=== PATIENT | male | born 1950 ===

== ENCOUNTER 2024-10-12 22:38 | Emergency (ER) | payer OTHER, SELFPAY ==
[2024-10-12 22:47] VITALS: BP 140/98; PULSE 107; O2SAT 98
[2024-10-12 22:49] VITALS: BP 147/82; PULSE 106; RESP 18; TEMP 36.6; O2SAT 100; BMI 24.5
[2024-10-12 23:13] LABS: Hematocrit 39.8 % (42.0-52.0); Hemoglobin 12.6 g/dl (14.0-18.0); Mean Corpuscular HGB Conc 31.7 g/dl (31.0-36.0); Mean Corpuscular Hemoglobin 27.2 pg (27.0-33.0); Mean Platelet Volume 10.9 fL (9.4-12.4); Platelet Count 321 X10*3/uL (160-400); Red Blood Count 4.63 X10*6/uL (4.60-5.80); Red Cell Distribution Width 14.6 % (11.0-16.0); White Blood Count 7.6 X10*3/uL (4.8-10.8)
[2024-10-12 23:14] LABS: Appearance Urine Clear; Color Urine Yellow; Glucose Urine UA Negative (Negative); Leukocyte Esterase Urine Trace (Negative); Nitrite Urine Negative (Negative); Specific Gravity - Urine <= 1.005 (1.005-1.025); UMIC TRIGGER UACC YES; Urine Blood Negative (Negative); Urine Ketones Negative (Negative); Urine Protein Negative (Neg-Trace)
[2024-10-12 23:17] LABS: Bacteria Urine None Seen (None Seen); Hyaline Casts Urine 0-2 /LPF (0-2); RBC Urine 0-2 /HPF (0-2); Squamous Epithelial Cell Urine 0-2 /HPF (0-2); WBC Urine 0-5 /HPF (0-5)
[2024-10-12 23:24] LABS: Amphetamine Screen Urine Not Detected (Not Detect); Barbiturates, Urine Not Detected (Not Detect); Benzodiazepines Screen Urine Not Detected (Not Detect); Buprenorphine Scr Not Detected (Not Detect); Cannabinoid Screen Urine Not Detected (Not Detect); Cocaine Screen Urine Not Detected (Not Detect); Fentanyl, urine Not Detected (Not Detect); Methadone Screen, Urine Not Detected (Not Detect); Opiate Screen Urine Not Detected (Not Detect); Oxycodone Screen Urine Not Detected (Not Detect); Phencyclidine Screen Urine Not Detected (Not Detect)
[2024-10-12 23:27] LABS: Alanine Aminotransferase 44 U/L (0-40); Albumin Level 4.1 g/dL (3.5-5.0); Alkaline Phosphatase 126 U/L (39-117); Anion Gap 17 (12-20); Aspartate Amino Transferase 52 U/L (5-37); Bilirubin Total 0.2 mg/dL (0.0-1.0); Blood Urea Nitrogen 11 mg/dL (9-16); Calcium 9.3 mg/dL (8.4-10.2); Carbon Dioxide 18 mmol/L (22-29); Chloride 113 mmol/L (96-108); Estimated Glomerular Filt Rate > 60; Ethanol 73 mg/dL; Glucose Random 114 mg/dL (60-115); Potassium 3.9 mmol/L (3.3-5.1); Sodium 144 mmol/L (135-145)
--- NOTE | 2024-10-12 23:27 | ED_ITS ---
HPI - General Adult General Chief complaint: General Medical Stated complaint: etoh dementia confused Time Seen by Provider: 10/12/24 23:11 History of Present Illness ED Provider: rFancisco Smith MD HPI narrative: Brought in by EMS [facility] has notified us that the patient was discharged from there on the to a facility we are trying to get additional records. Medical history reviewed from recent discharge note from [facility] shows discharge diagnosis: Syncope, fall, hypernatremia, alcohol and tox, finger fracture, metabolic acidosis, right-sided rib fracture, cirrhosis, toxic encephalopathy. Discharge medications albuterol, aspirin, iron, folic acid, multivitamin, olanzapine, Crestor, thiamine Related Data Allergies Allergy/AdvReac Type Severity Reaction Status Date / Time No Known Allergies Allergy Verified 10/12/24 22:49 [No Known Allergies*] [facility] Social History Social History Advance Directives: No Advance Directives Information Provided: No Physical Exam ED Vital Signs: Vital Signs - 24 hr 10/12/24 22:49 10/13/24 02:41 10/13/24 05:42 Temperature 97.9 F 97.5 F 97.5 F Pulse Rate 106 H 73 60 Respiratory Rate 18 18 14 Blood Pressure 147/82 H 102/58 L 94/51 L Pulse Oximetry 100 97 96 Oxygen Delivery Method Room Air Room Air Room Air 10/13/24 12:59 Temperature 98.0 F Pulse Rate 76 Respiratory Rate 16 Blood Pressure 118/60 Pulse Oximetry 96 Oxygen Delivery Method Room Air BMI result Body Mass Index 24.5 Const Other: EXAM: Gen: Alert, awake, mildly intoxicated with slurred speech. No obvious external signs of injury. Demented pleasantly Head: Atraumatic Eyes: Anicteric, Normal conjunctiva. ENT: Moist mucosa, no pallor. ? Neck: Supple. Respiratory: Breathing comfortably, No distress.Clear to auscultation bilaterally, symmetric chest expansion, No wheeze, rales, ronchi. Cardiovascular: Regular rate and rhythm. No murmurs or rub. Well perfused periphery, warm extremities. No edema. ? Abdominal: Soft, no objective distension. No palpable masses or obvious organomegaly. No focal tenderness, no guarding, no rebound tenderness or other peritoneal findings. : No flank tenderness. Neuro: Alert. Gross movement of all extremities intact. ?Pleasantly demented no focal deficits Vital signs: See flowsheet Course Course Course Narrative: 10/13/2024 10:10 am Rebekah Baird PA-C -----> Observation continues. Case management continues to follow for disposition. 10/13/2024 1530 Rebekah Baird PA-C ----> Patient will be discharged home with his sister rather than returning to [facility] [place]. Observation care revealed the the patient does not meet medical necessity for hospitalization. Final disposition discussed with the patient and the patient's sister who verbalized understanding and agreement. Patient completed observation care at 1530, total time spent in observation care was 12 hours and 10 minutes. Medical Decision Making Medical Decision Making [facility] Narrative: Thanks to our charge nurse who called over to the facility [facility] we found that the patient left but was not discharge. For this reason he will be sent back. Patient's labwork physical examination reveal only perhaps mild intoxication in the setting of probably chronic mild dementia. There is no signs of injury metabolic derangement or other acute actionable findings on the workup and examination __ After discussion with my charge nurse as well as multiple calls she made to the facility the patient absconded from we felt that this most safe disposition is an overnight board with case management involvement and nursing custodian supervisor involvement tomorrow morning for the safest and best disposition. No acute medical issues we will monitor the patient overnight signed out to overnight physician Admission/Observation Consideration of admission/observation: Escalation of care including admission/observation considered Lab Data [facility] Lab Attestation statement: I reviewed the patient's lab results. 10/12/24 23:05 10/12/24 23:05 Labs: Lab Results 10/12/24 Range/Units 23:05 WBC 7.6 (4.8-10.8) X10*3/uL RBC 4.63 (4.60-5.80) X10*6/uL Hgb 12.6 L (14.0-18.0) g/dl Hct 39.8 L (42.0-52.0) % MCV 86.0 (80.0-98.0) fL MCH 27.2 (27.0-33.0) pg MCHC 31.7 (31.0-36.0) g/dl RDW 14.6 (11.0-16.0) % Plt Count 321 (160-400) X10*3/uL MPV 10.9 (9.4-12.4) fL Absolute Nucleated RBC 0.000 (0.0-0.012) X10*3/uL Nucleated RBC % (auto) 0.0 (0.0-0.2) /100WBC Sodium 144 (135-145) mmol/L Potassium 3.9 (3.3-5.1) mmol/L Chloride 113 H (96-108) mmol/L Carbon Dioxide 18 L (22-29) mmol/L Anion Gap 17 (12-20) BUN 11 (9-16) mg/dL Creatinine 0.88 (0.5-1.4) mg/dL Estim Creat Clear Calc 66.0 Estimated GFR > 60 Random Glucose 114 (60-115) mg/dL Calcium 9.3 (8.4-10.2) mg/dL Total Bilirubin 0.2 (0.0-1.0) mg/dL AST 52 H (5-37) U/L ALT 44 H (0-40) U/L Alkaline Phosphatase 126 H (39-117) U/L Total Protein 8.0 (6.5-8.0) g/dL Albumin 4.1 (3.5-5.0) g/dL Urine Color Yellow Urine Appearance Clear Urine pH 6.0 (5.0-9.0) Ur Specific Thelma <= 1.005 (1.005-1.025) Urine Protein Negative (Neg-Trace) mg/dL Urine Glucose (UA) Negative (Negative) mg/dL Urine Ketones Negative (Negative) mg/dL Urine Blood Negative (Negative) Urine Nitrite Negative (Negative) Ur Leukocyte Esterase Trace H (Negative) Urine RBC 0-2 (0-2) /HPF Urine WBC 0-5 (0-5) /HPF Ur Squamous Epith Cells 0-2 (0-2) /HPF Urine Bacteria None Seen (None Seen) Hyaline Casts 0-2 (0-2) /LPF Urine Opiates Screen Not Detected (Not Detect) Ur Buprenorphine Scrn Not Detected (Not Detect) ng/mL Ur Oxycodone Screen Not Detected (Not Detect) ng/mL Urine Methadone Screen Not Detected (Not Detect) ng/mL Urine Fentanyl Screen Not Detected (Not Detect) Ur Barbiturates Screen Not Detected (Not Detect) Ur Phencyclidine Scrn Not Detected (Not Detect) Ur Amphetamines Screen Not Detected (Not Detect) U Benzodiazepines Scrn Not Detected (Not Detect) Urine Cocaine Screen Not Detected (Not Detect) U Marijuana (THC) Screen Not Detected (Not Detect) Ethyl Alcohol 73 mg/dL Discharge Plan Discharge Clinical Impression: Dementia Patient Disposition: Home, Self-Care Instructions: Dementia (ED) Additional Instructions: Follow up with your primary care provider. Return to the emergency department immediately if you develop any dizziness, shortness of breath, difficulty breathing, chest pain, blurry vision, loss of vision, nausea, vomiting, abdominal pain, fever, chills, back pain, or any other complaints. Elijah?seguimiento?con winkler m?dico de atenci?n primaria. Acuda inmediatamente al servicio de urgencias si presenta falta de aliento, dificultad para respirar, dolor tor?cico, mareos, aturdimiento, dolor de espalda, dolor abdominal, fiebre, escalofr?os o cualquier otro s?ntoma. Interventions: ED Discharge Assessment Last Done: 10/13/24 16:39 Discharge Date/Time: 10/13/24 16:40 Print Language: Unknown
--- NOTE | 2024-10-13 00:05 | PC.NURSE ---
Per EMS pt was found wandering in [place]. Pt stated to capital equipment specialist he was out drinking celebrating leaving the facility he was at, took a bus home but took the wrong one and ended up in the worst part of [place] . Pt reported being discharged from [facility] to an unknown rehab a week ago. Records obtained from [facility], pt was discharged to [facility] on 10/05/24. This RN called [facility] [place] to confirm whether pt was discharged from their facility or not, and it turns out pt is currently a pt at [facility] and was not discharged. Pt was not known by staff to be missing, staff unaware pt had eloped. This RN spoke with Layne ODONNELL on second floor, [facility], awaiting callback. Nursing curing room supervisor Deborah notified of situation at [phone].
--- OUTSIDE RECORDS SUMMARY | 2024-10-13 00:05 | XMS_ITS | Clinical Summary ---
Author Organization [facility] Address [address] [place] [address] Care Team Providers Care Airplane Technician Name Role Phone Kristy Tam PA-C Primary Care Provider Source Comments PLEASE NOTE, if this patient is a minor, it may be UNLAWFUL to discuss sensitive information that is contained in these records (such as FAMILY PLANNING, MENTAL HEALTH or SUBSTANCE ABUSE) with the minor patient's parent or other person without the patient's specific authorization.[facility] Allergies No known active allergies Medications naloxone (NARCAN) 4 mg/actuation nasal spray Use as directed in case of respiratory depression with tramadol over dose 2 Each 3 12/12/19 23 Active MISCELLANEOUS MEDICAL SUPPLY MISCIndications: Chronic pain of right knee by miscellaneous route daily. Back brush for showering, disp 1 lifetime need dx OA 1 Each 10/26/19 24 Active lactulose (CHRONULAC) 10 gram/15 mL solution Take 15 mL by mouth every 6 (six) hours 473 mL 3 01/25/20 [address] Active aspirin [address] tablet Take 1 Tablet by mouth once daily 90 Tablet 3 01/25/20 24 Active albuterol HFA 90 mcg/actuation inhalerIndicatio ns:Mild persistent asthma without complication ([facility]) Inhale 2 Puffs into the lungs every 4 to 6 (four to six) hours as needed for shortness of breath 18 g 5 06/23/19 25 Active rosuvastatin (CRESTOR) 10 mg tabletIndication s:Stenosis of left carotid artery Take 1 Tablet by mouth nightly at bedtime 90 Tablet 3 08/08/19 25 Active zolpidem (AMBIEN) 5 mg tablet Take 0.5 Tablets by mouth nightly at bedtime as needed for sleep for up to 30 days 15 Tablet 08/08/19 25 Active diclofenac sodium (VOLTAREN) 1 % gelIndications:C hronic pain of both knees Apply 2 g topically 2 (two) times daily 100 g 11 08/19/19 25 Active Active Problems Problem Noted Date Diagnosed Date Chronic pain of both knees 08/18/2024 History of being hospitalized 06/20/2024 025 Overview (07/18/2024): Result type: Discharge/Transfer Note Hospital Result date: June 20, 2024 11:43 EST Result status: Modified Result title: Discharge Summary Performed by: Donald Humphries MD on June 20, 2024 11:49 EST Verified by: Donald Humphries MD on June 20, 2024 11:49 EST Encounter info: [id number], [facility], Disch IP, 05/29/2024 - 06/20/2024 Document Contains Addenda Addendum by Debbie Alvarez MDhaela on June 20, 2024 15:04:56 EST (Verified) I have seen and evaluated the patient on the day of service. I have discussed the case and its management with medical assistant float and I agree with assessment and plan as documented in resident's note Patient: PHU FOREMAN Age: 73 Years Sex: Male : 1950 Patient Information Discharge Location: [facility]4 Primary Care Physician: Not on Staff, PCP Admit Date/Time: 05/29/2024 11:24 Discharge Disposition Discharge Disposition: Home with Home Health Discharge Diagnosis Depression, unspecified (F32.A) Iron deficiency anemia, unspecified iron deficiency anemia type (D50.9) Insomnia, unspecified type (G47.00) Leukocytosis, unspecified type (D72.829) Hypothermia (T68.XXXA) Alcohol intoxication (F10.929) Toxic metabolic encephalopathy (G92.8) Acidosis, lactic (E87.20) Anxiety and depression (F41.9) Alcohol abuse with withdrawal delirium (F10.131) Urinary tract infection (N39.0) Sinus pause (I45.5) Hallucination (R44.3) History of penile implant (Z96.0) Insomnia (G47.00) Hypernatremia (E87.0) Regular sinus tachycardia (R00.0) Iron deficiency anemia (D50.9) Abnormal transaminases (R74.8) 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) Leukocytosis (D72.829) _ Discharge Medications Albuterol (Ventolin 90 mcg Inhaler) 2 puff(s) Inhalation Every 4 hours Aspirin (aspirin 81 mg oral delayed release tablet) 81 Milligram 1 tablet By Mouth Daily BuPROpion (Wellbutrin SR 150 mg/12 hours oral tablet, extended release) 1 tab(s) 150 Milligram By Mouth Daily in AM Diclofenac Topical (Voltaren Arthritis Pain 1% topical gel) 2 gram Topically 2 times a day Ferrous Sulfate (ferrous sulfate 325 mg oral enteric coated tablet) 325 Milligram By Mouth Every other day for 30 Days Folic Acid (folic acid 1 mg oral tablet) 1 Milligram By Mouth Daily for 30 Days Lactulose (lactulose 10 gm/15 ml oral syrup) 30 Milliliter 20 gram By Mouth 3 times a day for 7 Days hold if more then 2 Bowel movement per day Multivitamin With Minerals (Therapeutic Multiple Vitamins with Minerals oral tablet, chewable) 1 tab(s) By Mouth Daily for 30 Days Pyridoxine (pyridoxine 50 mg oral tablet) 50 Milligram By Mouth Daily for 30 Days Rosuvastatin (Crestor 10 mg oral tablet) 1 tab(s) 10 Milligram By Mouth Daily at bedtime Thiamine (thiamine 100 mg oral tablet) 100 Milligram By Mouth Daily for 30 Days Zolpidem (Ambien 5 mg oral tablet) 2.5 Milligram By Mouth Daily at bedtime for 14 Days Medications Started None Medications Discontinued tramadol trazodone Doses Changed ambien dose reduced to 2.5 mg daily from 10 mg daily (taper off) Allergies Allergies (Active and Proposed Allergies Only) NKA (Severity: Unknown severity, Onset: Unknown) PCP Follow-Up/Heads-Up F/u LFTs Repeat CBC in 1 week Monitor renal function as outpatient. Consider outpatient nephrology referral Patient should no longer drive a car. Please reinforce this with him. Hospital Course Phu Foreman is a 73-year-old male with a history of alcohol dependence, depression/anxiety, asthma, heart failure (systolic and diastolic), and hepatic steatosis who was brought to the ER on 05/29 after he was [place] the [place] in the [place]. He had hypothermia on arrival which improved with Ibrahima hugger and warmed fluid, admitted for alcohol intoxication with risk for withdrawal. He had an abrasion on his forehead. Had some tenderness of his back and bruising left elbow. Imaging showed hepatic steatosis but no traumatic injuries. CT head with moderate volume loss and mild low-density white matter changes. Hospital course complicated by six second pause on telemetry which did not reoccur. Had abdominal pain and debris in bladder seen on ultrasound so he was empirically being treated for urinary tract infection. Right upper quadrant ultrasound showed no cholelithiasis. Hospital course further complicated by patient having persistent hallucinations and is not oriented concerning for baseline dementia vs delirium. He speaks Burundian only. Ultrasound right upper quadrant with cirrhotic morphology. MRI brain was done with no acute pathology but does show generalized age-related atrophy, multiple small foci within bilateral posterior parietal temporal lobes and occipital lobes which could be due to hemosiderin, small patchy areas of chronic small vessel ischemic disease, old lacunar infarcts. Echo showed EF 60 to 65%. Anemic initially. Was hypernatremic to 148 which has improved. AST slightly elevated 56 initially but LFTs worsened to AST 101 ALT 77, improved. CPK 1212 at first, EtOH level 08/05/2019, U tox otherwise negative. On 06/04 his UA showed more than 182 WBC, cx mixed neisha. Iron was low, B12 folate okay, TSH okay. WBC elevated on 06/14/24, but trending down. Patient is pending geriatric consult and multidisciplinary discharge planning done His sister is now the HCP Was reevaluated by PT who recom discharge home with outpatient services His mentation improved and stable for discharge home with outpatient VNA Toxic metabolic encephalopathy (G92.8) Alcohol abuse with withdrawal delirium (F10.131) Hallucination (R44.3) - resolved Dementia vs Delirium CT head on admission without any abnormalities, 06/08 MRI brain without any significant abnormalities, chronic small vessel changes. Patients sister lives next door. She reports this not patient's baseline When not drinking oriented x3 and does all his IAD, ADLS Mention of memory problems with neuro back in 2016 and MOCA of at the time. SW consult, has 10 hours of TELEPHONE RECORDER time, with goal for re-evaluation for increased hours when he is discharged, have confirmed that his car is at the gas station and is able to stay there Syphilis screen, B12, folate, TSH all within normal limit, ceruloplasmin not low RUQ US does show cirrhotic liver morphology, though CT abd/pel suggestive only of steatosis -Continue lactulose TID on discharge (goal 2-3 BM per day) -Zolpidem weaned to 2.5 mg daily -Thiamine and multivitamin daily Leukocytosis (D72.829): stable, no signs of infection at this time Mild elevation of WBC to 12.7 on 06/14, stable, improving, should f/u as outpatient No fever spikes, was mildly tachycardic to 95 overnight but no other signs or symptoms suggestive of infection Likely reactive -f/u as outpatient Regular sinus tachycardia (R00.0): EKG demonstrating sinus tachycardia Improvement with IV fluids on telemetry -Encourage PO fluids Abnormal transaminases (R74.8): stable Elevated transaminases, cholestatic pattern, right upper quadrant ultrasound on 06/08 with no signs of cholelithiasis, no abdominal pain on exam -monitor as outpatient Alcohol abuse 01/25/2024 Liver cirrhosis (HCC-CMS) on CT 201809/11/2022 Diastasis of rectus abdominis 02/04/2021 Venous insufficiency 02/04/2021 Stenosis of left internal carotid artery 25% 201902/04/2021 Poor historian 03/19/2020 Acute on chronic combined sy stolic and diastolic congestive heart failure ([facility]), hospitalized at 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, on x-ray 01/201601/24/2016 Poor short term memory 10/15/2015 Overview (10/15/2015): Result type: Neurology Note Office Result date: 22 August 2015 15:41 Result status: Modified Result title: Neurology Consult Note Performed by: Slade Schwartz NP on 22 August 2015 15:42 Verified by: Slade Schwartz NP on 22 August 2015 16:24 Encounter info: [id number], [facility], Office Visit, 08/22/2015 - 08/29/2015 Document Contains Addenda Neurology Consult Note Patient: PHU FOREMAN Age: 64 years Sex: Male : 1950 Associated Diagnoses: None Author: Slade Schwartz NP Visit Information Chief Complaint: Memory Loss. Visit Type Referrals source: Primary Care Physician Ermias Asher MD . Accompanied by: attorney recruiter. Source of history: patient, medical record. Type: Neurological follow-up. History of Present Illness Phu is a 64 year old male here for follow up memory loss. He state he is unsure if his memory problemes have gotten worse or improved. He states he is still forgetting things and got lost on his way to today's appointment. He found the street but kept going up and down the street. He has been writting everything to help him remember. He shows me his hand and has scribbled his next appt today /dentist. He states he is scare of cooking as left the stove on the other day -he was making boiled eggs and when he returned to the kitchen it was to get a glass of water not to check on the food cooking .He states that if he walks away from a task he will forget what he was doing. He continues to follow up with a psychiatrist and therapist for his anxiety. States contineus to take Trazadone. Feels its helping with sleep. Denies hospitalization or major changes in his health since last visit in May 2015 . [place] testing , two point improvement since last visit. We reviewed MRI results which showed multiple supratentorial & pointine T2 hyperintensie white matter lesion that are non -specific and normal lab work from previous visit . Onset: 7 months ago Progression: None Cognitive Difficulty remembering upcoming events: Yes - he has to leave appointments and information out in view so he doesn't forget Getting lost: continues . Difficulty keeping track of time: No Difficulty finding appropriate words: No Difficulty making decisions or problem solving: Yes - He feels that he is not capcable of learning anything new Functional Difficulty writing checks, paying bills: He now has to do this much more carefully than he used to Difficulty driving car: No Difficulty shopping alone: No - he has to write everything down otherwise he forgets what he went to tack picker Difficulty performing household tasks: yes -Cooking - leaves stove on unless he stays right there Difficulty persuing hobbies/leisure activity: Does not have many Change in gait: None recently - he uses a walker since accident with neck injury Social Activities Difficulty holding conversation: No Decreased social activity with family/friends: Continues to attend daily mass Less cooperative: No Less aware of others feelings, hurtful: No Less concerned about dressing/grooming: No Behavioral Sad, depressed: Worsened recently (predates the memory decline) and he has decreased interest in tasks Anxious, worried: Incerased anxiety Impatient, fidgety: No Acts impulsively, disinhibited: No Change in appetite or weight: Denies appetite changes Change in sleep pattern, daytime fatigue: Needs trazodone - Reports sleeping better Hallucinations: Once in a while he will see a person standing next to him when there is no one there. occouring often when return to his apartment. States he feels like someone is following him . States he knows ghost do not exist . He also tells me he hears weird noises while in apartment and he has been Reprimanding the devil These symptoms have been present for quite a while but have been more lately Past Medical History Allergies Allergic Reactions (Selected) NKA Past Medical History Chronic pain Anxiety Depression Asthma Current medications (Selected) Prescriptions Prescribed Colace sodium 100 mg oral capsule: 1 capsule = 100 mg, By Mouth, 2 times a day, # 60 capsule, 2 Refills, Maintenance, Capsule, 1 capsule By Mouth 2 times a day Dulcolax 5 mg oral enteric coated tablet: See Instructions, 4 tablet By Mouth prior to bowel preparation for colonoscopy, # 4 tablet, 0 Refills, Maintenance, 4 tablet By Mouth prior to bowel preparation for colonoscopy Metamucil 3.4 gm/5.2 gm oral powder for reconstitution: = 3.4 Gm, By Mouth, 2 times a day, # 570 Gm, 1 Refills, Maintenance, 3.4 Gm By Mouth 2 times a day MiraLax oral powder for reconstitution: = 255 Gm, By Mouth, Once, Dissolve in 64 oz of Gatorate * No Red or Tammy, # 1 bottle, 0 Refills, Soft Stop, 255 Gm By Mouth Once,Instr:Dissolve in 64 oz of Gatorate * No Red or Tammy Documented Medications Documented Aplenzin 522 mg/24 hours oral tablet, extended release: 1 tablet = 522 mg, By Mouth, Daily in AM, # 30 tablet, 0 Refills, Maintenance, 05/23/15 10:08:51, ER Tablet Aplenzin 522 mg/24 hours oral tablet, extended release: 1 tablet = 522 mg, By Mouth, Daily in AM, 0 Refills, Maintenance Folic Acid: = 1 mg, Daily, 0 Refills, Maintenance NexIUM 40 mg oral powder for reconstitution, delayed release: 1 each = 40 mg, By Mouth, Daily, 0 Refills, Maintenance, 05/23/15 10:08:37 Nexium 40 mg oral enteric coated capsule: 1 capsule = 40 mg, By Mouth, Daily, 0 Refills, Maintenance Percocet-5/325 325 mg-5 mg oral tablet: 1 tablet, By Mouth, 2 times a day, 0 Refills, Maintenance ProAir HFA 90 mcg/inh inhalation aerosol with adapter: 2 puffs, Inhalation, 4 times a day, 0 Refills, Maintenance, 05/23/15 10:10:19 Symbicort 160mcg-4.5mcg Inhaler: Inhalation, 2 times a day, Maintenance, 05/23/15 10:09:56 carisoprodol 350 mg oral tablet: 1 tablet = 350 mg, By Mouth, 3 times a day, 0 Refills, Maintenance diclofenac sodium 75 mg oral delayed release tablet: 1 tablet = 75 mg, By Mouth, 2 times a day, 0 Refills, Maintenance ibuprofen 800 mg oral tablet: 1 tablet = 800 mg, By Mouth, 3 times a day, # 270 tablet, 0 Refills, Maintenance, Tablet meloxicam 15 mg oral tablet: 1 tablet = 15 mg, By Mouth, Daily, 0 Refills, Maintenance, 05/23/15 10:09:10 predniSONE 10 mg oral tablet: 1 tablet = 10 mg, By Mouth, Daily, 0 Refills, Maintenance, 05/23/15 10:09:34 tramadol 50 mg oral tablet: 1 tablet = 50 mg, By Mouth, Every 12 hours, PRN for pain, # 30 tablet, 0 Refills, Maintenance, Tablet zolpidem 10 mg oral tablet: 1 tablet = 10 mg, By Mouth, Daily at bedtime, PRN for sleep, 0 Refills, Maintenance, Tablet Social History Living Situation: Lives alone Tobacco Use: Stopped smoking as of May 2015 -( previous smoker - 1/2 ppd x ~10yrs ) Alcohol use:None Recreational Drug Use: None Employment: Unemployed Education - 7th grade Social History . Family History Mother had some memory change but after the age of 90. Review of Systems Constitutional: Fatigue Endocrine: Negative. Skin: Negative MSK: Neck and back pain Eyes: Glasses ENMT:Negative : Negative GI: Negative CV: Negative Resp: Negative Heme/Lymph: Negative Psych: Anxiety and depression Neuro: As HPI Physical Examination Vital Signs Vitals: Vitals : VITAL SIGNS SECTION 08/22/2015 13:46 Temperature 96.7 DegF L Pulse Rate 51 bpm L Respiratory Rate 14 br/min L Systolic Blood Pressure 104 mm Hg Diastolic Blood Pressure 70 mm Hg Blood pressure sites Arm, left Mean Arterial Pressure 81 mm Hg , Weight : Weight lb/oz 08/22/2015 13:46 Weight lb/oz 150 lb 6 oz . General Exam Appearance: appears stated age, comfortable and appropriate. HEENT: Head Normocephalic. Respiratory: normal I:E. Rheumatologic: no kyphosis, no scoliosis, no swelling, no tenderness, no deformity, no redness. Dermatologic: no bruising, no rash, no significant skin lesions. Extremities: no clubbing, no edema. Neurological: MOCA MOCA 30 Executive 3/5 - difficulties with copying cube correcly and understanding trial drawing . Dex clock with continur, correct numbers and correct placement of hands Naming 2 /3 - did not get rhinocerrus Attention3 /6 - could not repeat 5 digits correctly , was able to repeat 3 digits backwards , got 1 correct answer for serial substraction Language 2 /3 -- could repat senstences well, fluency 6 words Abstraction 2/2 Delayed Recall 2 /5 - Orientation 6 /6- and 1 additional point for grade 7 education . Cranial nerves: pupils PERRLA, visual intact, visual acuity normal, extra ocular movements intact, facial musculature (facial asymmetry, no ptosis), facial sensation intact, hearing normal bilateral, speech (clear, appropriate), tongue (protrudes midline, no atrophy), gag uvula midline, shoulder shrug 5/5, neck musculature 5/5. Motor exam: strength (5/5 throughout, no pronator drift, good finger tapping, no give way weakness), tremor none, tone normal, bulk normal, cerebellar normal, coordination good finger to nose. DTRs: 2+ symmetric. Sensory exam: light touch normal. Stance and gait: normal. Results Review General results Lab / Imaging Results Laboratory : LABORATORY 05/27/2015 14:01 Sodium 140 mmol/L Potassium 4.3 mmol/L Chloride 106 mmol/L Bicarbonate Level 26 mmol/L Anion Gap 8 Glucose Level 131 mg/dL H BUN 7 mg/dL L Creatinine-Blood 1.1 mg/dL Estimated GFR, Non >60 ML/MIN/1.73 M2 Estimated GFR, >60 ML/MIN/1.73 M2 Calcium 9.2 mg/dL Protein, Total 6.9 Gm/dL Albumin 4.1 Gm/dL AG Ratio 1.5 Alkaline Phosphatase 66 units/L AST (SGOT) 13 units/L ALT (SGPT) 13 units/L Bilirubin, Total 0.3 mg/dL Syphilis Interpretation Indicative of the absence of infection with Treponemal pallidum. Test Syphilis Screen by SHAUN NONREACTIVE RPR Titer Result NOT INDICATED TP-PA Result NOT INDICATED MRI brain 07/10/15 IMPRESSION: 1. Multiple supratentorial and pontine T2 hyperintense white matter lesions are present, which are nonspecific. These may represent chronic microangiopathic/small vessel ischemic change, but the sequela of an inflammatory process, such as demyelination, is a consideration. 2. No evidence of hydrocephalus or extra-axial fluid collection. 3. Subtle foci of susceptibility artifact are present within the posterior left parietal and temporal lobes which may represent chronic microhemorrhage or parenchymal calcification. Impression and Plan Phu is a 64 year old male with a history of anxiety and depression who presents is here for follow up memory decline. He continues to follow up with his pyschiatrist and therapist, he states he continues to think about his brother in law who passed suddently but not as much as before. As noted previously his pain and pain medications can contribute to poor memory as well. His recent MRI did not reveal anatomical changes that would explain the symptoms. -- Continue psychiatric care -- Pending Neuro psych testing to r/o underlying neurodegenerative process -- RTC 6 months Pt seen with : Matthew Allen NP Attending : Pedro Hua M.D Attestation Encounter Time Total length of time of the encounter 35 minutes Time spent counseling/coordinating care 20 minutes Report sent to all consultants: Ermias Asher MD. Addendum by Matthew Allen NP on 27 August 2015 12:39 (Verified) Mr Foreman is a 64 year old male with memory decline over the last few years. He has conflicting variables that can impact in a major way, ones memory, including anxiety and depression. Also, sedating medications can also impair memory. Pending neurocog eval. Normocytic anemia, heme eval 06/201410/15/2015 Overview (10/15/2015): Result type: Hematology Oncology Office Note Result date: 04 July 2014 21:36 Result status: Auth (Verified) Result title: Office Note Performed by: Anabel Collado MD on 04 July 2014 21:36 Verified by: Anabel Collado MD on 13 July 2014 11:43 Encounter info: [id number], [facility], Disch Recurring OP, 04/12/2014 - 09/03/2014 Contributor system: [facility]UANCE * Final Report * Office Note (Verified) OFFICE NOTE DATE:07/04/2014 PRIMARY CARE PHYSICIAN: Ermias Asher M.D. DIAGNOSIS: Normocytic normochromic anemia. TREATMENT: Observation. INTERVAL HISTORY: A 63-year-old male seen as a routine followup. Last appointment was in 05/2014. Most recent workup included a CBC on 05/30/14 which demonstrated white count of 10.0, hemoglobin 13.4, hematocrit 41.6 and platelets 213,000. Chem-7 was normal, creatinine was 0.9, LFTs were normal, iron level 68, ferritin 48, iron saturation 24%, B12 was 630, folic acid 13.4, TSH was 2.06, normal immunofixation, HIV was negative, RPR was nonreactive in the past. Urinalysis was bland, fecal occult blood x3 in 01/2014 was negative and HFE mutation was negative. The patient admits to some persistence in fatigue. It is unclear whether he has dyspnea on exertion. States he is being worked up for some shortness of breath when he lies flat and that is treated with an inhaler. Continues to smoke cigarettes daily. He is contemplating about quitting smoking. HISTORY OF PRESENT ILLNESS: This is a 63-year-old male who has a history of hemorrhoids, polyarthritis due to query rheumatoid arthritis and hemorrhoids, who was referred to hematology for workup of anemia. His hemoglobin has improved over the past couple of months. His symptoms are vague and unclear if they are directly related to the anemia. I would not expect such symptoms with a hemoglobin of 13 and above. He did tell us in the past that he was diagnosed with anemia between the age of 22 and 32 and had never been on iron supplements and that he be has been treated for some sort of liver condition, which contained a lot of iron, in [place] in the last 10 years and he had been phlebotomized once every 2-3 months for the couple of years while he was in [place], which normalized his counts. He has not required any further phlebotomy or transfusion since then. He moved to the [facility] in 08/2010 and at that time, he had developed polyarthritis. He has missed his recent colonoscopy appointment because of transport issues. PAST MEDICAL HISTORY: Depression, hemorrhoids, history of anemia, polyarthritis, herniated discs and possible hemochromatosis in the past requiring phlebotomy. PAST SURGICAL HISTORY: Low back surgery. MEDICATIONS: Bisacodyl, MiraLax, docusate, bupropion 520 mg daily, carisoprodol 350 mg t.i.d., Percocet, diclofenac, Nexium, zolpidem, tramadol, ibuprofen and vitamin D. ALLERGIES: No known drug allergies. SOCIAL HISTORY: No alcohol intake. He stopped alcohol intake 30 years ago. Current smoker of 8-10 cigarettes per day for the past 15 years. Lives alone. He has a sister who lives in town and has 2 other brothers and sisters who do not live close to him. FAMILY HISTORY: Mother with diabetes, sister had diabetes and brother had colon cancer diagnosed at age 65. REVIEW OF SYSTEMS: Positive for fatigue and possible dyspnea while lying flat. PHYSICAL EXAMINATION: Vitals: Temperature 98.5, heart rate 85 and blood pressure 128/71. General: The patient is in no acute distress. HEENT: Normocephalic and atraumatic. Eyes: No scleral icterus. Mouth: No oral lesions. Neck: No palpable adenopathy. Cardiovascular: Heart sounds 1 and 2 normal. No added sounds, no murmurs. Lungs: Clear to auscultation bilaterally. No wheezes, no crackles. Abdomen: Soft and nontender. No guarding, no rigidity. Extremities: No peripheral edema. No cyanosis or clubbing. Neurological: Alert and oriented x3. Nonfocal, gait is normal. Psychiatric: Appropriate affect. LABORATORY DATA: White cell count 10.0, hemoglobin 13.4, hematocrit 41.6 and platelets 213,000. INR 1.0, PT 10.0, APTT 38.9 and sed rate 14. Chem-7 normal, creatinine 0.9, LFTs are normal, folic acid 13.4, B12 was 638, iron 68, TIBC 294, iron saturation 24 and ferritin 48. Immunofixation was normal. HIV was negative. ASSESSMENT AND PLAN: A 63-year-old male with a history of possible hemochromatosis, which required phlebotomy in the past who is being followed for a normocytic, normochromic anemia. Extensive workup mentioned above is negative. Currently, no urgent blood transfusion is found warranted. His most likely etiology of his normocytic normochromic anemia is anemia of chronic disease and due to an ongoing inflammatory process. Typically, we would expect the ferritin to be 100 in acute inflammatory setting, although can still have anemia of chronic disease/inflammatory process if the ferritin is less than 100. Iron saturation is normal, so I do not think that he has hemachromatosis which is requiring phlebotomy at the moment. No reason to be on iron supplement at this moment. We recommend that he have his routine colonoscopy to be performed. He does not need to follow up with us routinely. He can be followed up by his PCP for routine labs. We would highly recommend obtaining a colonoscopy sooner than later. If there is evidence of any lesions causing GI bleed, we would then recommend p.o. iron supplements. He can follow up with us as needed for now, and followed up by PCP. Case was seen with Dr. Stevens. Dictated by: Serene Tello MD I have seen and examined this patient and confirm the history and physical examination findings. I have reviewed the assessment and plan with the fellow and agree with the recommendations as outlined in the note above. Dictated by: Anabel Stevens M.D. Signing Clinician: Anabel Stevens M.D. Dictated: 07/04/2014 21:36:06 Transcribed: 07/05/2014 00:03:38 Transcribed by: JESSENIA DocID: [id number] PRELIMINARY REPORT UNLESS MANUALLY/ELECTRONICALLY SIGNED CC:Ermias Asher M.D. [facility] [address] [place], [address] Former cigar smoker 10/06/2015 Primary osteoarthritis involving multiple joints 05/10/2013 Xerosis of skin 05/10/2013 GERD (gastroesophageal reflux disease) 3 Chronic low back pain 03/14/2013 Chronic neck pain 03/14/2013 Overview (03/14/2013): Sees specialist and had MRI of Cervical spine 12/13/2012 Encounters Date Type Department Care Team Description 08/18/2024 2:40 PM EST Office Visit [facility] [address] [place] [phone] Thuy Hill PA-C Chronic pain of both knees (Primary Dx) from Last 3 Months Immunizations Immunization Administration Dates Next Due Flu, Adjuvant, 65y+ (Fluad) 05/22/2021 Flu, High Dose, 65y+, Fluzone High Dose 04/22/20 20 INFLUENZA, SEASONAL, INJECTABLE 02/22/2012 Influenza (FLUZONE), high-dose, trivalent, PF ,04/22/2020 PNEUMOCOCCAL CONJUGATE PCV 13 11/27/2021 PNEUMOCOCCAL CONJUGATE PCV 20 (Prevnar) 10/26/19 24 PNEUMOCOCCAL POLYSACCHARIDE PPV23 (Pneumovax 23) 04/09/2011 TDAP 02/22/2012 Social History Tobacco Use Types Packs/Day Years Used Date Smoking Tobacco: Former Cigarettes Smokeless Tobacco: Never Tobacco Cessation:Counseling Given: Yes Comments:quit since may 2015 Alcohol Use Standard Drinks/Week Comments No 0 (1 standard drink = 0.6 oz pur e alcohol) Social Connections Answer Date Recorded Connectedness 1 05/03/2024 Financial Resource Strain Answer Date R ecorded Financial Resource Strain 1 2023 Stress Answer Date Recorded Stress 1 05/03/2024 Physical Activity Answer Date Recorded Physical Activity 0 01/30/2019 Food Insecurity Answer Date Recorded Food 1 05/03/2024 Transportation Needs Answer Date Record ed Transportation 1 05/03/2024 Housing Stability Answer Date Recorded Housing 1 05/03/2024 Safety and Environment Answer Date Royer rded Safety 0 01/30/2019 Utilities Answer Date Recorded Utilities 1 05/03/2024 Employment Answer Date Recorded Stress 0 09/01/2021 Sex and Gender Information Value Date Recorded Sex Assigned at Male 04/07/2017 8:41 AM PDT Legal Sex Male 11:36 AM PDT Gender Identity Male 04/07/2017 8:41 AM PDT Sexual Orientation Straight 04/07/2017 8: 41 AM PDT Last Filed Vital Signs Vital Sign Reading Time Taken Comments Blood Pressure 118/80 08/18/2024 2:30 PM EST Pulse 113 08/18/2024 2:30 PM EST Temperature 36.8 ??C (98.3 ??F) 08/18/2024 2:30 PM ES T Respiratory Rate 16 08/18/2024 2:30 PM EST Oxygen Saturation 98% 08/18/2024 2:30 PM EST Inhaled Oxygen Concentration - - Weight 66.1 kg (145 lb 12.8 oz) 08/18/2024 2:30 PM EST Height 165.1 cm (5' 5 ) 08/18/2024 2:30 PM EST Body Mass Index 24.26 08/18/2024 2:30 PM EST Plan of Treatment Health Maintenance Due Date Last Done Comments EGD (Upper Endoscopy) 1950 Hepatocellular Carcinoma Scr eening (HCC) 1950 Imm-Hepatitis A (1 of 2 - Ri sk 2-dose series) 09/12/1971 CT Colonography 1997 Flexible Sigmoidoscopy 1997 Imm-Hepatitis B (1 of 3 - Ri sk 3-dose series) 2012 Falls Prevention 2017 Imm-DTaP/Tdap/Td (2 - Td or Tdap) 02/21/2022 012 Colonoscopy 04/28/2022 04/28/2017 Colorectal Cancer Screening 07/02/2023 FIT/gFOBT 07/01/2024 07/01/2023 Depression Monitoring 08/03/2024 05/03/2024 , 10/26/2023, 05/27/2022, Additional history exists Diabetes Screening 05/03/2025 05/03/2024, 1 07/03/2023, 10/26/2023, Additional history exists Lipid Screening 05/03/2025 05/03/2024, 10/12, 2022, Additional history exists Medicare Annual Wellness Visit 05/03/2025 1 07/03/2023, 05/27/2022, 03/01/2018, Additional history exists Hypertension Screening (#1) 08/18/2025 Tobacco Screening 08/18/2025 08/18/2024 Fecal DNA 07/01/2026 07/01/2023 Hepatitis C Screening Completed 09/22/2018, 017 Abdominal Aortic Aneurysm Screening Completed 06/08/2019 Imm-Pneumococcal 65+ Completed 10/26/2023, 11/27/2021, 04/09/2011 Imm-Influenza Completed 05/03/2024, 02/2021, 04/22/2020, Additional history exists Alcohol and Drug Screen Completed 08/19/19, 05/03/2024, 10/26/2023, Additional history exists [id number] Discontinued Imm-Zoster, Recombinant Discontinued Procedures Procedure Name Priority Date/Time Associated Diagnosis Comments HEMOGLOBIN GLYCOSYLATED A1C Routine 05/03/2024 1:29 PM EST Routine general medical examination at a health care facility Acute on chronic anemia Mild persistent asthma without complication Acute on chronic combined systolic and diastolic congestive heart failure (HCC-CMS), hospitalized at [facility] 02/2019 Pre-diabetes Alcohol abuse Poor short term memory Poor historian Cirrhosis of liver without ascites, unspecified hepatic cirrhosis type (HCC-CMS) LIPID PANEL Routine 05/03/2024 1:29 PM EST Routine general medical examination at a health care facility Acute on chronic anemia Mild persistent asthma without complication Acute on chronic combined systolic and diastolic congestive heart failure (HCC-CMS), hospitalized at [facility] 02/2019 Pre-diabetes Alcohol abuse Poor short term memory Poor historian Cirrhosis of liver without ascites, unspecified hepatic cirrhosis type (HCC-CMS) COLOGUARD Routine 07/01/2023 3:00 AM EST Colon cancer screening HEPATITIS A,B,C PANEL Routine 09/22/2018 10:22 AM EDT Elevated LFTs COLONOSCOPY Routine 04/28/2017 11:32 AM EST Functional constipation from Last 3 Months or Most Recently Relevant to Health Maintenance Results * (ABNORMAL) HEMOGLOBIN GLYCOSYLATED A1C (05/03/2024 1:29 PM EST) HEMOGLOBIN A1C 5.9(H) <5.7 % of total Hgb [facility] Comment: For someone without known diabetes, a hemoglobin A1c value between 5.7% and 6.4% is consistent with prediabetes and should be confirmed with a follow-up test. For someone with known diabetes, a value <7% indicates that their diabetes is well controlled. A1c targets should be individualized based on duration of diabetes, age, comorbid conditions, and other considerations. This assay result is consistent with an increased risk of diabetes. Currently, no consensus exists regarding use of hemoglobin A1c for diagnosis of diabetes for children. Blood Blood / Unknown 05/03/2024 1 :29 PM EST 05/03/2024 1:30 PM EST Narrative [facility] - 05/05/2024 6:32 AM EST FASTING:NO Kristy Tam PA-C LAB - BLOOD DRAW Edited Resu lt - Final [facility] [address] [place] [phone], [facility] [address] [address] * LIPID PANEL (05/03/2024 1:29 PM EST) Pathologist [facility] CHOLESTEROL, TOTAL 118 <200 mg/dL [facility] HDL CHOLESTEROL 65 > OR = 40 mg/dL [facility] TRIGLYCERIDES 77 <150 mg/dL [facility] LDL-CHOLESTEROL 37 99 mg/dL (calc) [facility] Comment: Reference range: <100 Desirable range <100 mg/dL for primary prevention; ?? <70 mg/dL for patients with CHD or diabetic patients with > or = 2 CHD risk factors. LDL-C is now calculated using the Pipo calculation, which is a validated novel method providing better accuracy than the Friedewald equation in the estimation of LDL-C. Ken ZACARIAS et al. RENÉE. 2013;310(19): 8380-9721 (http://education.Post.Bid.Ship.Sendmail/faq/RHP360) CHOL/HDLC RATIO 1.8 <5.0 (calc) [facility] NON-HDL CHOLESTEROL 53 <130 mg/dL (calc) [facility] Comment: For patients with diabetes plus 1 major ASCVD risk factor, treating to a non-HDL-C goal of <100 mg/dL (LDL-C of <70 mg/dL) is considered a therapeutic option. Blood Blood / Unknown 05/03/2024 1 :29 PM EST 05/03/2024 1:30 PM EST Narrative [facility] [employer] [facility] - 05/05/2024 6:32 AM EST FASTING:NO Kristy Tam PA-C LAB - BLOOD DRAW Final Resul t Performing Organization Address City/[facility] Co de Phone Number [facility] [address] [place] [address], [employer] [address] [phone] * COLOGUARD (07/01/2023 3:00 AM EST) Stool Stool specimen / Unknown 07/01/2023 3:00 AM EST Kristy Tam PA-C LAB - NO BLOOD DRAW Edited R esult - Final Performing Organization Address City/[facility] Co de Phone Number RF Code [address] [place] [address], [facility] [address] [facility] [id number] [place] [address], * (ABNORMAL) HEPATITIS A,B,C PANEL (09/22/2018 10:22 AM EDT) HEPATITIS B SURFACE ANTIGEN NEGATIVE NEGATIVE [facility] Comment: Over the counter supplements containing high doses of biotin may interfere with this assay. ??If interference is suspected, patients shoud be retested after refraining from biotin supplements for 72 hours. HEPATITIS C VIRUS DIAGNOSTIC NEGATIVE NEGATIVE [facility] HEPATITIS A ANTIBODY TOTAL POSITIVE(A) NEGATIVE [facility] Comment: Over the counter supplements containing high doses of biotin may interfere with this assay. ??If interference is suspected, patients shoud be retested after refraining from biotin supplements for 72 hours. HEPATITIS B CORE ANTIBODY NEGATIVE NEGATIVE [facility] HEPATITIS B SURFACE ANTIBODY NEGATIVE NEGATIVE [facility] Comment: Test performed at: [facility] [address] [place] [address] Blood specimen (specimen) Blood / Unknown 09/22/2018 10:22 AM EDT 09/22/2018 11:56 AM EDT Narrative [facility] - 09/22/2018 4:21 PM EDT [employer], a member of [address] [address] Automotive Manufacturer - Laurie Cas[place] [id number] ORD# [id number] Kristy Tam PA-C LAB - BLOOD DRAW Edited Resu lt - Final [facility] [address], * COLONOSCOPY (04/28/2017 11:32 AM EST) Impressions Kristy Tam PA-C - 04/28/2017 11:32 AM EST Colon polyps, repeat in 5 years [facility] PROCEDURES Final Res ult from Last 3 Months or Most Recently Relevant to Health Maintenance Insurance [facility] Member Subscriber Plan / Payer (Ef fective 2018-Present) Name:Phu Foreman Relation to Subscriber:Self Name:Phu Foreman Payer ID:[id number] Group ID:Not on file Type:Medicare Address: [address] Member Subscriber Plan / Payer (Ef fective 2023-Present) Name:Phu Foreman Relation to Subscriber:Self Name:Phu Foreman Payer ID:[id number] Group ID:Not on file Type:Indemnity Address: [facility] [address] [address] Care Teams Airplane Technician Relationship Specialty Start Date End Date Kristy Tam PA-C [facility] [place] [phone] PCP - General Internal Medicine 10/03/15
--- OUTSIDE RECORDS SUMMARY | 2024-10-13 00:05 | XMS_ITS | Data Portability ---
Author Organization [email or web address] - [employer] Address [address] [place] [phone] Care Team Providers Care Information Technology Data Analyst Name Role Phone HIM CCA OTHER Assessment Encounter Date Assessment Date Assessment LastModified by Organization Details LastModified Time 10/19/2023 10/19/2023 I provided real -time medical direction via phone for this encounter and was available for additional phone-based assistance as needed. I have reviewed and agree with the Assessment and Plan as documented by the Croze Cutter Helper. Patient given the opportunity to ask questions. Our service contacted for an assessment of: As per above, patient Per shirt folding machine operator on the scene, Impression: Plan: We discussed the diagnostic uncertainty of home visits and the risk associated with this. In this case, the patient and I felt this to be an acceptable and reasonable amount of risk given the benefit of avoiding an ED visit. We discussed the need to seek care urgently/emerge ntly in the setting of any new or worsening serious symptoms, particularly fever chills [email or web address] Not available 10/19/2023 13:24:41 Plan of Treatment Reminders Order Date Submit Date Provider Last Modified By Organization Details Last Modified Time Details Appointments None recorded. Lab None recorded. Referral None recorded. Procedures None recorded. Surgeries None recorded. Imaging None recorded. Medication Orders Tylenol Extra Strength 500 mg tablet 2023 024 [facility], [address] [place] [address], [id number], 13:25:00 Voltaren Arthritis Pain 1 % topical gel 2023 024 [facility], [address] [place] [address], [id number], 13:24:57 Patient TargetsNo targets recorded. Patient InstructionsNo instructions recorded. Reason for Referral None Reported. Medical Equipment None Reported. Medications Name Sig Start Date Stop Date Status Note LastModified by Organization Details LastModified Time bupropion HCl SR 150 mg tablet,12 hr sustained-rele ase active Not Available Not Available Not Available tramadol 50 mg tablet active Not Available Not Available Not Available cephalexin 500 mg capsule TOME 1 C PSULA POR V A ORAL TK VECES AL D A active Not Available Not Available No t Available zolpidem 10 mg tablet active Not Available Not Available Not Available albuterol sulfate HFA 90 mcg/actuation aerosol inhaler active Not Available Not Available Not Available Tylenol Extra Strength 500 mg tablet Take 2 tablets twice a day by oral route for 5 days. 2023 active Not Available Not Available Not Avai lable rosuvastatin 10 mg tablet active Not Available Not Available Not Available diclofenac 1 % topical gel APPLY 2 GRAMS TO THE AFFECTED AREA DOS VECES AL D A active Not Available Not Available No t Available naloxone 4 mg/actuation nasal spray active Not Available Not Available Not Available Vitals Date Recorded Body temperature Respiratory rate Heart rate Oxygen saturation Oxygen saturation in Arterial blood by Pulse oximetry Systolic blood pressure Diastolic blood pressure Provider Name and Address Organization Details Last Updated DateTime 4 98 [degF] 16 /min 97 /min 97 % 97 % 127 mm[Hg] 76 mm[Hg] Not Available [facility] - production 13:20:41 Social History None recorded. Functional Status None recorded. Mental Status None recorded. Family History Nothing Reported. Medical History No medical history recorded. Past Encounters Encounter ID Performer Location Encounter Start Date Encounter Closed Date Diagnosis/Indication Diagnosis SNOMED-CT Code Diagnosis ICD10 Code Diagnosis Note [id number] Carmen Mccarty MD Main - [facility] [address] [place] [phone] 10/19/2023 13:20:38 10/19/2023 22:39:05 Osteoarthritis of knee 566982883 M17.9 Health Concerns Section Related Observation LastModified by Organization Detai ls LastModified Time None Recorded Concern Status LastModified by Organization Details LastModified Time None Recorded Advance Directives Directive None Recorded Payers Encounter Date Sequence Insurance Name Policy Number Policy Washburn Covered Member ID Washburn Member ID Guarantor Name 10/19/2023 1 [facility] - DOS ON OR AFTER 2022 - DUAL ELIGIBLE - CUSTODIAL OPTIONS AND ONE CARE (MEDICARE REPLACEMENT/ADV ANTAGE - HMO) Phu Foreman [id number] Phu Foreman Notes Date Note Type Note Provider Name and Address Organization Details Recorded Time 10/19/2023 text/html HPI: Liliam is a 73 yo Micronesian speaking male with significant hx including suicide ideation, ETOH abuse, anxiety disorder, MDD, asthma, chronic back pain, forgetfulness, HTN, acute on chronic anemia, cognitive decline, pre-diabetes, osteoarthritis, peripheral venous insufficiency, lumbar radiculopathy, COPD, myoneural disorder, hepatic cirrhosis, unstable angina, dupuytren, chronic bronchitis, occlusion and stenosis of left carotid artery, and age related debility. NKDA. MSR transfer call to this CRU RN for medical re: knee pain. Mbr and MEAT BUTCHER on the line and both speak Micronesian only. [employer] called for Nutrition Services Worker and Ronald #[id number] ([phone]) assisted with this call. This CRU RN and Data Security Consultant connected to Mbr and MEAT BUTCHER [facility]. Per Mbr and MEAT BUTCHER mbr has enlarged right leg vein swelling and pain in knee area since yesterday. Mbr denies falling or injury any part of right leg or knee. Right leg swollen and larger than left leg. Mbr denies chest pain, SOB or fever. Offered [facility] HV and they agreed. Instructed Mbr to call 911 if mbr develops worsening s/s including SOB or Chest Pain and they agreed to do. This CRU RN placed INSTED referral in for Mbr today. Confirmed address and phone/[phone]. ................... ................... ................... ................... ................... ................... ................... ........ [facility] Nurse Triage Notes (Tabitha Livingston): Comments: HPI reviewed. ................... ................... ................... ................... ................... ................... ................... ........ Croze Cutter Helper Note From Zach Tomas: Pt reports four days of bilateral knee pain c/w OA. Pt reports similar pain in the past. Pt denies any new injuries, f/n/v/d. Pt is alert, NAD. VSS. Afebrile. Non focal neuro exam. Lungs CTA. Benign ABD exam. No LE edema. No edema, erythema or warmth noted in both knees. Pt has full ROM. Pt treated with acetaminophen 1 g PO. [facility] to send more acetaminophen and diclofenac gel to pharmacy. Pt instructed to f/u with PCP later this week. ................... ................... ................... ................... ................... ................... ................... ........ Disposition: Fulfilled Carmen Mccarty MD [address] [facility],[address], [place], [phone], NABILA CAMPBELL 10/19/2023 13:24:57
--- OUTSIDE RECORDS SUMMARY | 2024-10-13 00:05 | XMS_ITS | Clinical Summary ---
Author Organization [address] [facility] Address [address] [place] [address] Phone Care Team Providers Care Sports Bookmaker Name Role Phone Merlin Magdaleno MD Primary Care Provider [phone] Encounters Date Type Department Care Team Description 10/11/2024 Lab Requisition [facility] Lab [address] [place] [id number] Goyo Bose MD Other toxic encephalopathy; Acute on chronic combined systolic (congestive) and diastolic (congestive) heart failure (CMS/HCC V24, CMS/HCC V28) 10/06/2024 Lab Requisition [facility] Lab [address] [place] [address] Goyo Bose MD Other toxic encephalopathy from Last 3 Months Social History Tobacco Use Types Packs/Day Years Used Date Smoking Tobacco: Former Smokeless Tobacco: Current Sex and Gender Information Value Date Recorded Sex Assigned at Not on file Legal Sex Male 4:34 AM EST Gender Identity Not on file Sexual Orientation Not on file Obstetrics History Plan of Treatment Health Maintenance Due Date Last Done Comments Hepatitis A Vaccines (1 of 2 - Risk 2-dose series) 09/12/1971 Zoster Vaccines (1 of 2) 2002 Hepatitis B Vaccines (1 of 3 - Risk 3-dose series) 2012 RSV Immunization Adult Patients (1 - Risk 60-74 years 1-dose series) 2012 DTaP,Tdap,and Td Vaccines (2 - Td or Tdap) 02/21/2022 02/22/2012 Abdominal Aortic Aneurysm (AAA) Screen 05/17/2022 Falls Risk Assessment 05/17/2022 Hepatitis C Screening 05/17/2022 Social Influencers of Health Screening 05/17/2022 COVID-19 Vaccine ( season) 2024 Depression Screening 05/03/2025 05/03/2024 Hypertension/CHF/CAD Annual BMP Blood Test 10/11/2025 10/11/2024, 05/03/2024 Colorectal Cancer Screening: FIT-DNA (Cologuard) 07/01/2026 07/01/2023 Cholesterol Screening (Lipid Panel) 05/03/2029 05/03/2024, 05/03/2024, 10/26/2023, Additional history exists Pneumococcal Vaccine: 50+ Years Completed 10/26/2023, 11/27/2021, 04/09/2011 Influenza Vaccine Completed 05/03/2024, , 04/22/2020, Additional history exists HIB Vaccines Aged Out No longer eligi ble based on patient's age to complete this topic HPV Vaccines Aged Out No longer eligi ble based on patient's age to complete this topic IPV Vaccines Aged Out No longer eligi ble based on patient's age to complete this topic MMR Vaccines Aged Out No longer eligi ble based on patient's age to complete this topic Meningococcal ACWY Vaccine Aged Out N o longer eligible based on patient's age to complete this topic Meningococcal B Vaccine Aged Out No l onger eligible based on patient's age to complete this topic RSV Immunization Patients Under 20 months Aged Out No longer eligible based on patient's age to complete this topic Varicella Vaccines Aged Out No longer eligible based on patient's age to complete this topic Procedures Procedure Name Priority Date/Time Associated Diagnosis Comments COMPREHENSIVE METABOLIC PANEL Routine 10/11/2024 7:22 AM EDT 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 WBC 6.7 4.8 - 10.8 K/mcL LAB HEMETOLOGY METHOD 10/11/2024 10:53 AM [facility] LAB RBC 4.20(L) 4.50 - 5.50 M/mcL LAB HEMETOLOGY METHOD 10/11/2024 10:53 AM [facility] LAB Hemoglobin 11.8(L) 13.5 - 17.5 g/dL LAB HEMETOLOGY METHOD 10/11/2024 10:53 AM [facility] LAB Hematocrit 37.5(L) 42.0 - 54.0 % LAB HEMETOLOGY METHOD 10/11/2024 10:53 AM [facility] LAB MCV 89.7 79.0 - 98.0 FL LAB HEMETOLOGY METHOD 10/11/2024 10:53 AM [facility] LAB MCH 28.2 27.0 - 32.0 pcg LAB HEMETOLOGY METHOD 10/11/2024 10:53 AM [facility] LAB MCHC 31.5(L) 32.0 - 37.0 g/dL LAB HEMETOLOGY METHOD 10/11/2024 10:53 AM [facility] LAB RDW 14.9 11.0 - 15.0 % LAB HEMETOLOGY METHOD 10/11/2024 10:53 AM [facility] LAB Platelets 328 130 - 400 K/mcL LAB HEMETOLOGY METHOD 10/11/2024 10:53 AM [facility] LAB MPV 11.6(H) 7.0 - 11.0 FL LAB HEMETOLOGY METHOD 10/11/2024 10:53 AM [facility] LAB NRBC 0.0 <1.0 % LAB HEMETOLOGY METHOD 10/11/2024 10:53 AM EDT [facility] LAB NRBC Absolute 0.00 <0.10 K/mcL LAB HEMETOLOGY METHOD 10/11/2024 10:53 AM EDT [facility] LAB Blood Venous blood specimen / Unknown Venipuncture / Unknown 10/11/2024 7:22 AM EDT 10/11/2024 10:17 AM EDT us Goyo Bose MD LAB BLOOD ORDERABLES Final Resul t [facility] LAB [address] [place] [address], [place] [phone] * (ABNORMAL) Comprehensive metabolic panel (10/11/2024 7:22 AM EDT) Sodium 146(H) 133 - 145 mmol/L LAB CHEMISTRY METHOD 10/11/2024 11:19 AM [facility] LAB Potassium 4.5 3.5 - 5.5 mmol/L LAB CHEMISTRY METHOD 10/11/2024 11:19 AM [facility] LAB Chloride 117(H) 96 - 110 mmol/L LAB CHEMISTRY METHOD 10/11/2024 11:19 AM [facility] LAB CO2 21 21 - 32 mmol/L LAB CHEMISTRY METHOD 10/11/2024 11:19 AM [facility] LAB Anion Gap 8 3 - 11 LAB CHEMISTRY METHOD 10/11/2024 11:19 AM [facility] LAB Glucose 81 70 - 100 mg/dL LAB CHEMISTRY METHOD 10/11/2024 11:19 AM [facility] LAB BUN 9 5 - 25 mg/dL LAB CHEMISTRY METHOD 10/11/2024 11:19 AM [facility] LAB Creatinine 0.91 0.70 - 1.30 mg/dL LAB CHEMISTRY METHOD 10/11/2024 11:19 AM [facility] LAB eGFR 90 >=60 mL/min/1. 73m2 LAB CHEMISTRY METHOD 10/11/2024 11:19 AM [facility] LAB Comment:Calculation based on the??Chronic Kidney Disease Epidemiology Collaboration (CKD-EPI) equation refit??without adjustment for race. BUN/Creatinine Ratio 9.9 LAB CHEMISTRY METHOD 10/11/2024 11:19 AM [facility] LAB Calcium 8.8 8.5 - 10.5 mg/dL LAB CHEMISTRY METHOD 10/11/2024 11:19 AM [facility] LAB AST (SGOT) 29 10 - 42 unit/L LAB CHEMISTRY METHOD 10/11/2024 11:19 AM [facility] LAB ALT (SGPT) 35 10 - 60 unit/L LAB CHEMISTRY METHOD 10/11/2024 11:19 AM [facility] LAB Alkaline Phosphatase 123(H) 42 - 121 unit/L LAB CHEMISTRY METHOD 10/11/2024 11:19 AM [facility] LAB Total Protein 7.2 6.0 - 8.0 g/dL LAB CHEMISTRY METHOD 10/11/2024 11:19 AM [facility] LAB Albumin 3.3 3.2 - 5.0 g/dL LAB CHEMISTRY METHOD 10/11/2024 11:19 AM [facility] LAB Total Bilirubin 0.2 0.0 - 1.4 mg/dL LAB CHEMISTRY METHOD 10/11/2024 11:19 AM [facility] LAB Blood Venous blood specimen / Unknown Venipuncture / Unknown 10/11/2024 7:22 AM EDT 10/11/2024 10:17 AM EDT us Goyo Bose MD LAB BLOOD ORDERABLES Final Resul t [facility] LAB [address] [place] [address], [place] [phone] from Last [address] [place] [phone] MEDICA[place] Care Teams Sports Bookmaker Relationship Specialty Start Date End Date Merlin Magdaleno MD [id number] [place] [address] PCP - General Internal Medicine 05/03/20
--- OUTSIDE RECORDS SUMMARY | 2024-10-13 00:05 | XMS_ITS | Encounter Summary ---
Author Organization [facility] Address [address] [place] [address] Care Team Providers Care Dental Practice Manager Name Role Phone Merlin Magdaleno MD Primary Care Provider [phone] Encounter Details Date Type Department Care Team (Late st Contact Info) Description 10/11/2024 Lab Requisition [facility] - Main Lab [address] [facility] [place] [address] Goyo Bose MD [address] [facility] [address] [place], [address] Other toxic encephalopathy; Acute on chronic combined systolic (congestive) and diastolic (congestive) heart failure (CMS/HCC V24, CMS/HCC V28) Social History Tobacco Use Types Packs/Day Years Used Date Smoking Tobacco: Former Smokeless Tobacco: Current Sex and Gender Information Value Date Recorded Sex Assigned at Not on file Legal Sex Male 4:34 AM EST Gender Identity Not on file Sexual Orientation Not on file documented as of this encounter Plan of Treatment Not on file documented as of this encounter Procedures Procedure Name Priority Date/Time Associated Diagnosis Comments COMPLETE BLOOD COUNT Routine 10/11/2024 7:22 AM EDT 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 LAB Potassium 4.5 3.5 - 5.5 mmol/L LAB CHEMISTRY METHOD 10/11/2024 11:[address] [facility] LAB Chloride 117(H) 96 - 110 mmol/L LAB CHEMISTRY METHOD 10/11/2024 11:[address] [facility] LAB CO2 21 21 - 32 mmol/L LAB CHEMISTRY METHOD 10/11/2024 11:[address] [facility] LAB Anion Gap 8 3 - 11 LAB CHEMISTRY METHOD 10/11/2024 11:[address] [facility] LAB Glucose 81 70 - 100 mg/dL LAB CHEMISTRY METHOD 10/11/2024 11:[address] [facility] BUN 9 5 - 25 mg/dL LAB CHEMISTRY METHOD 10/11/2024 11:[address] [facility] LAB Creatinine 0.91 0.70 - 1.30 mg/dL LAB CHEMISTRY METHOD 10/11/2024 11:[address] [facility] LAB eGFR 90 >=60 mL/min/1. 73m2 LAB CHEMISTRY METHOD 10/11/2024 11:[address] [facility] LAB Comment:Calculation based on the??Chronic Kidney Disease Epidemiology Collaboration (CKD-EPI) equation refit??without adjustment for race. BUN/Creatinine Ratio 9.9 LAB CHEMISTRY METHOD 10/11/2024 11:[address] [facility] LAB Calcium 8.8 8.5 - 10.5 mg/dL LAB CHEMISTRY METHOD 10/11/2024 11:[address] [facility] LAB AST (SGOT) 29 10 - 42 unit/L LAB CHEMISTRY METHOD 10/11/2024 11:[address] [facility] LAB ALT (SGPT) 35 10 - 60 unit/L LAB CHEMISTRY METHOD 10/11/2024 11:19 AM EDT [facility] LAB Alkaline Phosphatase 123(H) 42 - 121 unit/L LAB CHEMISTRY METHOD 10/11/2024 11:19 AM EDT [facility] LAB Total Protein 7.2 6.0 - 8.0 g/dL LAB CHEMISTRY METHOD 10/11/2024 11:19 AM T [facility] LAB Albumin 3.3 3.2 - 5.0 g/dL LAB CHEMISTRY METHOD 10/11/2024 11:[address] [facility] LAB Total Bilirubin 0.2 0.0 - 1.4 mg/dL LAB CHEMISTRY METHOD 10/11/2024 11:[address] [facility] LAB Blood Venous blood specimen / Unknown Venipuncture / Unknown 10/11/2024 7:22 AM EDT 10/11/2024 10:17 AM EDT us Goyo Bose MD LAB BLOOD ORDERABLES Final Resul t [facility] [address] [place] [address], * (ABNORMAL) Complete blood count (10/11/2024 7:22 AM EDT) WBC 6.7 4.8 - 10.8 K/mcL LAB HEMETOLOGY METHOD 10/11/2024 10:53 AM T [facility] LAB RBC 4.20(L) 4.50 - 5.50 M/mcL LAB HEMETOLOGY METHOD 10/11/2024 10:53 AM EDT [facility] Hemoglobin 11.8(L) 13.5 - 17.5 g/dL LAB HEMETOLOGY METHOD 10/11/2024 10:[address] [facility] LAB Hematocrit 37.5(L) 42.0 - 54.0 % LAB HEMETOLOGY METHOD 10/11/2024 10:53 AM T [facility] LAB MCV 89.7 79.0 - 98.0 FL LAB HEMETOLOGY METHOD 10/11/2024 10:53 AM T [facility] LAB MCH 28.2 27.0 - 32.0 pcg LAB HEMETOLOGY METHOD 10/11/2024 10:53 AM T [facility] LAB MCHC 31.5(L) 32.0 - 37.0 g/dL LAB HEMETOLOGY METHOD 10/11/2024 10:53 AM T [facility] LAB RDW 14.9 11.0 - 15.0 % LAB HEMETOLOGY METHOD 10/11/2024 10:[address] [facility] LAB Platelets 328 130 - 400 K/mcL LAB HEMETOLOGY METHOD 10/11/2024 10:53 AM T [facility] LAB MPV 11.6(H) 7.0 - 11.0 FL LAB HEMETOLOGY METHOD 10/11/2024 10:[address] [facility] LAB NRBC 0.0 <1.0 % LAB HEMETOLOGY METHOD 10/11/2024 10:[address] 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
--- OUTSIDE RECORDS SUMMARY | 2024-10-13 00:05 | XMS_ITS | Encounter Summary ---
Author Organization [facility] Address [address] [place] [address] Care Team Providers Care Hospice Educator Name Role Phone Merlin Magdaleno MD Primary Care Provider [phone] Encounter Details Date Type Department Care Team (Late st Contact Info) Description 10/06/2024 Lab Requisition [facility] - Main Lab [address] [facility] [place] [address] Goyo Boes MD [address] [facility] [address] [place], [address] Other toxic encephalopathy Social History Tobacco Use Types Packs/Day Years [...] Associated Diagnosis Comments COMPLETE BLOOD COUNT Routine 10/06/2024 7:32 AM EDT Other toxic encephalopathy documented in this encounter Results * (ABNORMAL) Complete blood count (10/06/2024 7:32 AM EDT) WBC 9.3 4.8 - 10.8 K/[facility] LAB HEMETOLOGY METHOD 10/06/2024 9:35 AM EDT [facility] LAB RBC 4.50 4.50 - 5.50 M/[facility] LAB HEMETOLOGY METHOD 10/06/2024 9:35 AM EDT [facility] LAB Hemoglobin 12.6(L) 13.5 - 17.5 g/dL LAB HEMETOLOGY METHOD 10/06/2024 9:35 AM [facility] LAB Hematocrit 39.2(L) 42.0 - 54.0 % LAB HEMETOLOGY METHOD 10/06/2024 9:35 AM [facility] LAB MCV 86.9 79.0 - 98.0 FL LAB HEMETOLOGY METHOD 10/06/2024 9:35 AM [facility] LAB MCH 27.9 27.0 - 32.0 pcg LAB HEMETOLOGY METHOD 10/06/2024 9:35 AM [facility] LAB MCHC 32.1 32.0 - 37.0 g/dL LAB HEMETOLOGY METHOD 10/06/2024 9:35 AM [facility] LAB RDW 15.0 11.0 - 15.0 % LAB HEMETOLOGY METHOD 10/06/2024 9:35 AM [facility] LAB Platelets 355 130 - 400 K/mcL LAB HEMETOLOGY METHOD 10/06/2024 9:35 AM [facility] LAB MPV 10.9 7.0 - 11.0 FL LAB HEMETOLOGY METHOD 10/06/2024 9:35 AM [facility] LAB NRBC 0.0 <1.0 % LAB HEMETOLOGY METHOD 10/06/2024 9:35 AM [facility] LAB NRBC Absolute 0.00 <0.10 K/mcL LAB HEMETOLOGY METHOD 10/06/2024 9:35 AM [facility] LAB Blood Venous blood specimen / Unknown Venipuncture / Unknown 10/06/2024 7:32 AM EDT 10/06/2024 9:09 AM EDT us Goyo Bose MD LAB BLOOD ORDERABLES Final Resul t [facility] [address] [place] [address], documented in this encounter Visit Diagnoses Diagnosis Other toxic encephalopathy documented in this encounter Care Teams Hospice Educator Relationship Specialty Start Date End Date Merlin Magdaleno MD [id number] [place] [address] PCP - General Internal Medicine 05/03/20 documented as of this encounter
--- NOTE | 2024-10-13 00:09 | PC.NURSE ---
[facility]
--- NOTE | 2024-10-13 01:38 | PC.NURSE ---
pt resting comfortably with eyes closed, breathing even and unlabored, no apparent distress. call anderson w/in reach. urinal at bedside. elopement band in place
[2024-10-13 02:41] VITALS: BP 102/58; PULSE 73; RESP 18; TEMP 36.4; O2SAT 97
[2024-10-13 05:42] VITALS: BP 94/51; PULSE 60; RESP 14; TEMP 36.4; O2SAT 96
--- NOTE | 2024-10-13 07:25 | PC.NURSE ---
Pt moved to bed 6. Awake and eating breakfast
--- NOTE | 2024-10-13 09:17 | MHC.CM.ED ---
Received case management consult overnight. Return referral made to [facility]. Waiting for return reply. Continue to monitor for d/c needs.
[2024-10-13 12:59] VITALS: BP 118/60; PULSE 76; RESP 16; TEMP 36.7; O2SAT 96
--- NOTE | 2024-10-13 13:47 | MHC.CM.ED ---
Received notification from Ruby of [facility] that they have spoken to patient's sister/HCP, Rupali Foreman via telephone at [phone]. Rupali is not agreeable to patient being transferred to their [place] facility due to elopement risk. Rupali would prefer patient return home. Rupali lives in the apartment next to [place] and she will care for him. Attempted to reach Rupali with the help of a parts interpreter. Voicemail left explaining Mitch PHELPS will transport patient home at 7pm. Mitch PHELPS booked. [facility] with chart. Patient, Malaika ODONNELL and Rebekah RIVERA aware. [facility] Supervisor Corduroy Cutting will be made aware. Continue to monitor for d/c needs.
[2024-10-13 16:39] VITALS: BP 118/60; PULSE 76; RESP 16; TEMP 36.7; O2SAT 96
== END 2024-10-13 16:40 | disposition home or self-care (01) ==
PROVIDERS: Emergency Provider Emergency Medicine
DX: F10.129 Alcohol abuse with intoxication, unspecified (principal); Y90.3 Blood alcohol level of 60-79 mg/100 ml; F03.90 Unspecified dementia, unspecified severity, without behavioral disturbance, psychotic disturbance, mood disturbance, and anxiety; Z91.83 Wandering in diseases classified elsewhere; Z79.899 Other long term (current) drug therapy; Z51.81 Encounter for therapeutic drug level monitoring
CPT/HCPCS: 36415; 80053; 80307; 81001; 85027; 99283; 99284